=== PATIENT | female | born 1995 | race African-American/Black ===

== ENCOUNTER 2017-07-09 10:38 | Emergency (ER) | payer OTHER ==
--- NOTE | 2017-07-09 11:42 | PDOC ---
History of Present Illness <Edmar Vargas - Last Filed: 07/09/17 12:49> - General History Source: Patient Exam Limitations: No Limitations - History of Present Illness Initial Comments: 07/09/17 12:12 The patient is a 22 year old female(), with a significant past medical history of asthma and recurrent vulvar cysts, who presents to the emergency with a vulvar cyst for approximately 5-6 days. The patient reports the cyst is localized to the left vulva and is painful in nature. Patient denies any associated vaginal bleeding or discharge, dysuria, hematuria, frequency, or urgency. She reports associated nausea and epigastric abdominal pain, but denies any vomiting, diarrhea, or constipation. Patient reports going to [facility] days ago with similar symptoms, where she was placed on Zofran, Zantac, and Clindamycin, with minimum relief of symptoms. Today, patient reports visiting her PCP, Dr. Shipley, who recommended the patient follow up in the ED for possible cyst drainage. Patient denies any recent fever , chills, cough, body aches, headache, or dizziness. Patient reports her last menstrual period was 06/15/17. Allergies: NKDA Past Surgical History: None reported. Social History: Non smoker. No ETOH or recreational drug use. PCP: Dr. Shipley <Ponce Purcell - Last Filed: 07/09/17 13:04> - General Stated Complaint: PELVIC CYST Time Seen by Provider: 07/09/17 11:12 Past History - Past Medical History Asthma: Yes COPD: No - Reproductive History Therapeutic (s) & number: No - Suicide/Smoking/Psychosocial Hx Smoking History: Never smoked <Edmar Vargas - Last Filed: 07/09/17 12:49> <Ponce Purcell - Last Filed: 07/09/17 13:04> - Past Medical History Allergies/Adverse Reactions: Allergies Allergy/AdvReac Type Severity Reaction Status Date / Time No Known Allergies Allergy Verified 04/11/17 22:19 Home Medications: Ambulatory Orders Ondansetron [Zofran Odt -] 4 mg SL BID #14 od.tablet 04/12/17 Clindamycin [Cleocin -] 300 mg PO TID 07/09/17 Review of Systems - Review of Systems Comments:: 07/09/17 12:12 CONSTITUTIONAL: No fever, no chills, no fatigue EYES: No visual changes ENT: No ear pain, no sore throat CARDIOVASCULAR: No chest pain, no palpitations RESPIRATORY: No cough, no SOB GI: +Epigastric abdominal pain. No nausea, no vomiting, no constipation, no diarrhea GENITOURINARY: +Left vulvar cyst with associated pain. No dysuria, no frequency , no hematuria MUSCULOSKELETAL: No back pain, no joint pain, no myalgias SKIN: No rash NEURO: No headache <Ponce Purcell - Last Filed: 07/09/17 13:04> *Physical Exam - Vital Signs Last Vital Signs Temp Pulse Resp BP Pulse Ox 98.3 F 85 16 106/70 100 07/09/17 11:30 07/09/17 11:30 07/09/17 11:30 07/09/17 11:30 07/09/17 11:30 - Physical Exam Comments: 07/09/17 12:12 CONSTITUTIONAL: Well-appearing; well-nourished; in no apparent distress HEAD: Normocephalic; atraumatic EYES: PERRL; EOM intact ENMT: External appears normal; normal oropharynx NECK: Supple; non-tender; no cervical lymphadenopathy. CARD: Normal S1, S2; no murmurs, rubs, or gallops RESP: Normal chest excursion with respiration; breath sounds clear and equal bilaterally; no wheezes, rhonchi, or rales ABD: Soft, non-distended; non-tender; no palpable organomegaly, no palpable hernias PELVIC: Left labia majora indurated area with large area of fluctuance, consistent with Bartholin's gland cyst. EXT: Normal ROM in all four extremities; non-tender to palpation; distal pulses intact SKIN: Warm, dry, no rash NEURO: No focal neurological deficiencies. <Ponce Purcell - Last Filed: 07/09/17 13:04> Procedures - Incision and Drainage I&D Site: Left: Bartholin (Left labia) Betadine cleansed: Yes Anesthesia: 1% Lidocaine w/ Epi (3.5 mL) Plain Packing: Yes (Word catheter) Complications: none Progress: 07/09/17 13:04 Large amount of purulent discharge was drained after incision. Patient tolerated procedure well. <Ponce Purcell - Last Filed: 07/09/17 13:04> Medical Decision Making - Medical Decision Making 07/09/17 12:43 Patient is a 22-year-old female who presented to the ER with a large left Bartholin's gland abscess. Patient had been placed on by mouth clindamycin by [facility] staff previously. In the ER, patient is awake and alert, nontoxic-appearing, afebrile, hemodynamically stable. After discussing the risk and benefit of the procedure, and after performing a timeout, incision and drainage of the Bartholin's gland abscess was performed. Large amount of purulent discharge was drained after incision. Word catheter was placed. Patient tolerated procedure well. Will discharge with [facility] follow-up. <Edmar Vargas - Last Filed: 07/09/17 12:49> *DC/Admit/Observation/Transfer <Edmar Vargas - Last Filed: 07/09/17 12:49> - Attestations Scribe Attestion: 07/09/17 12:13 Documentation prepared by Ponce Purcell, acting as medical records library professor for Edmar Vargas MD. <Ponce Purcell - Last Filed: 07/09/17 13:04> Diagnosis at time of Disposition: Bartholin's gland abscess - Discharge Dispostion Disposition: HOME Condition at time of disposition: Stable - Referrals Referrals: Fabiana Shipley MD [Primary Care Provider] - Niall Rose MD [Staff Physician] - - Patient Instructions Printed Discharge Instructions: Bartholin Gland Cyst Additional Instructions: Take sitz baths in warm soapy water, continue antibiotics, follow-up with OB/ [facility] [employer]. Return immediately for fever, severe pain, worsening pain. - Post Discharge Activity
[2017-07-09 11:49] VITALS: TEMP 98.3; BMI 20.1
[2017-07-09] MEDS ORDERED: LIDOCAINE 1%/EPI 1:100000 (20 ML MULTI DOSE VIAL) ONE (11:51)
[2017-07-09 12:44] LABS: HCG,QUALITATIVE URINE NEGATIVE; URINE APPEARANCE CLOUDY; URINE BILIRUBIN NEGATIVE (NEGATIVE); URINE BLOOD 2+ (NEGATIVE); URINE COLOR AMBER; URINE GLUCOSE (UA) NEGATIVE (NEGATIVE); URINE KETONE 2+ (NEGATIVE); URINE NITRITE NEGATIVE (NEGATIVE)
[2017-07-09 12:47] LABS: URINE LEUK ESTERASE 3+ (NEGATIVE); URINE PROTEIN 1+ (NEGATIVE)
[2017-07-09 12:49] LABS: CALCIUM OXALATE CRYSTALS MANY /hpf (NONE SEEN); EPI CELLS MODERATE /HPF (FEW); URINE BACTERIA RARE /hpf (NONE SEEN); URINE MUCUS MANY
[2017-07-09 13:22] VITALS: BP 108/68; PULSE 68
== END 2017-07-09 13:22 | disposition home or self-care (01) ==
LOC: JER 10:38
PROC: 0U9L0ZZ Drainage of Vestibular Gland, Open Approach (ICD-10-PCS; principal; 2017-07-09)
DX: N75.1 Abscess of Bartholin's gland (principal)
CPT/HCPCS: 81003; 81015; 84703; 87086; 99282-25

== ENCOUNTER 2018-03-21 12:00 | Emergency (ER) | payer OTHER ==
[2018-03-21 12:08] VITALS: BMI 21.9
--- NOTE | 2018-03-21 12:23 | PDOC ---
Attending Attestation - Resident Resident Name: Carmen Stovall - HPI HPI: 03/22/18 14:15 Pt presents to the Ed complaining of a three day history of painful swelling to her vulva. history of bartholin's cysts x 3 in the past. Denies fever, nausea or vomiting or other complaints. 03/22/18 14:16 - Physicial Exam PE: 03/22/18 14:17 Agree with resident exam. + Large, exquisitely tender swelling to the mucosal surface of her left labia, consistent with bartholin's cyst. No surrounding cellulitis. 03/22/18 14:25 - Medical Decision Making 03/22/18 14:26 Pt presents to the ED complaining of bartolins cyst. I and D performed in the ED with copious purlent drainage. Pa ring placed. Will discharge home with follow up with [facility]ERAMIC DESIGNER. Have advised patient that she may need marsupialisation given recurrent bartholin's. Procedures - Incision and Drainage I&D Site: Left: Bartholin Betadine cleansed: Yes Anesthesia: 1% Lidocaine Volume(ml): 2 Blade Size: 10 Attempts: 1 Plain Packing: No (pa ring placed) Complications: none Dressing: No
--- NOTE | 2018-03-21 13:06 | PDOC ---
History of Present Illness - General Chief Complaint: Abscess Boil Stated Complaint: Abscess Boil Time Seen by Provider: 03/21/18 12:19 History Source: Patient Exam Limitations: No Limitations - History of Present Illness Initial Comments: 03/21/18 13:01 Pt is a 22yo f A1 presenting to ED with an abscess in the labia. Pt states she noticed the abscess 2 days ago on . 9/10 pain. She has had similar episodes 3 times in the past, once in 2014, one June 2017 and another 2 months ago in December. Pt said she had tried draining it herself but was told not to. In June, she was given antibiotics but this time she is not on any antibiotics. She denies fevers, chills, vaginal discharge, drainage, vaginal bleeding, pelvic pain, abdominal pain, n/v/d. LMP 1 month ago. PMH: asthma PSH: PMD: Thalappillil Meds: none Allergies: nkda Past History - Past Medical History Allergies/Adverse Reactions: Allergies Allergy/AdvReac Type Severity Reaction Status Date / Time No Known Allergies Allergy Verified 03/21/18 12:04 Home Medications: Ambulatory Orders Sulfamethoxazole/Trimethoprim [Bactrim Ds -] 1 tab PO BID #14 tablet 03/21/18 Asthma: Yes COPD: No - Reproductive History (#): 2 Para: 1 Therapeutic (s) & number: No Spontaneous : 1 - Suicide/Smoking/Psychosocial Hx Smoking History: Never smoked Have you smoked in the past 12 months: No Information on smoking cessation initiated: No Hx Alcohol Use: No Drug/Substance Use Hx: No Substance Use Type: None Review of Systems - Review of Systems Constitutional: No: Chills, Fever, Weakness HEENTM: No: Symptoms Reported Respiratory: No: Cough, Shortness of Breath Cardiac (ROS): No: Chest Pain, Lightheadedness, Palpitations ABD/GI: No: Blood Streaked Bowels, Constipated, Diarrhea, Nausea, Vomiting, Abdominal cramping, Tarry Stools : Yes: Other (abscess in left labia, no drainage). No: Burning, Dysuria, Frequency Musculoskeletal: No: Back Pain, Joint Pain, Muscle Weakness Integumentary: No: Pallor, Pruritus, Rash Neurological: No: Symptoms reported *Physical Exam - Vital Signs Last Vital Signs Temp Pulse Resp BP Pulse Ox 98.2 F 75 18 123/77 100 03/21/18 12:05 03/21/18 12:05 03/21/18 12:05 03/21/18 12:05 03/21/18 12:05 - Physical Exam General Appearance: Yes: Nourished, Appropriately Dressed. No: Apparent Distress HEENT: positive: EOMI, RHINA Neck: positive: Trachea midline, Supple. negative: Lymphadenopathy (R), Lymphadenopathy (L) Respiratory/Chest: positive: Lungs Clear, Normal Breath Sounds Cardiovascular: positive: Regular Rhythm, Regular Rate, S1, S2. negative: Edema , JVD, Murmur Vascular Pulses: Carotid (R): 2+, Carotid (L): 2+, Dorsalis-Pedis (R): 2+, Doralis-Pedis (L): 2+ Female Pelvic Exam: positive: Bartholin mass. negative: discharge, vaginal bleeding Gastrointestinal/Abdominal: positive: Normal Bowel Sounds, Soft. negative: Distended, Guarding, Rebound, Tenderness Lymphatic: negative: Adenopathy Musculoskeletal: positive: Normal Inspection. negative: CVA Tenderness Extremity: positive: Normal Capillary Refill Integumentary: positive: Normal Color, Dry, Warm Neurologic: positive: med aide II-XII NML intact, Fully Oriented, Alert, Normal Mood/ Affect, Normal Response, Motor Strength 5/5 Medical Decision Making - Medical Decision Making 03/21/18 14:04 Pt is a 22yo f A1 presenting to ED with an abscess in the labia. Pt states she noticed the abscess 2 days ago on . Vitals: wnl PE: bartholin abscess in L labia. No drainage, fluctuant. no overlying skin erythema. ttp DDx: bartholin cyst/abscess. Labs not necessary. Will drain. Word catheter not available in ED, will place Ke Ring. I+D done under supervision of Dr. Gary. accidental needle stick took place. Pt agreed to HIV and Hepatitis panel. Pt otherwise stable and can be dc home, will give Bactrim. Pt advised to see ob/ obstetrics gynecology physician in 1 week, ring needs to stay in place for 3 weeks. HIV negative. HEp panel pending. Pt complaining of headache, given Tylenol. DC with rx for Bactrim *DC/Admit/Observation/Transfer Diagnosis at time of Disposition: Bartholin cyst - Discharge Dispostion Disposition: HOME Condition at time of disposition: Good Decision to Admit order: No - Prescriptions Prescriptions: Sulfamethoxazole/Trimethoprim [Bactrim Ds -] 1 tab PO BID #14 tablet - Referrals Referrals: Fabiana Shipley MD [Primary Care Provider] - - Patient Instructions Printed Discharge Instructions: DI for Bartholin Gland Cyst Additional Instructions: You were seen here today for a Bartholin Cyst. It was drained. A ring was placed, this will stay for 3 weeks. HIV testing is negative. You will get a phone call about your other tests. I recommend refraining from sexual activity and placement of any objects in the vaginal canal (like tampons) for a few weeks. Please follow up with your senior dentist in one week for further management. Come back to the emergency room if: pain gets worse, you develop fever, site looks infected, or if any new concerning symptom develops. Thank you - Post Discharge Activity
[2018-03-21 16:19] VITALS: BP 103/61; PULSE 85; TEMP 99.4
[2018-03-21] MEDS ORDERED: ACETAMINOPHEN 500 MG TABLET (FP) PO ONE (17:09)
[2018-03-21] MEDS ORDERED: ACETAMINOPHEN 325 MG TABLET (FP) ONE (17:15)
[2018-03-22 08:10] LABS: HBSAG SCREEN Negative (Negative); HEP B CORE AB, TOT Negative (Negative)
== END 2018-03-21 17:20 | disposition home or self-care (01) ==
LOC: JER 12:00
PROC: 0U9L0ZZ Drainage of Vestibular Gland, Open Approach (ICD-10-PCS; principal; 2018-03-21)
DX: N75.1 Abscess of Bartholin's gland (principal)
CPT/HCPCS: 36415; 56420; 86704; 86706; 86708; 86803; 87340; 87389; 99282-25